=== PATIENT | female | born 1980 | race Caucasian/White ===

== ENCOUNTER 2018-03-03 12:33 | Emergency (ER) | payer OTHER ==
[~2018-03-03] VITALS: Ht 170.2 cm; Wt 71.7 kg
[~2018-03-03 12:33] MED LIST: AMOXICILLIN 50500 MG PO; AUGMENTIN 875875 M1 PO; BENADRYL25 MG; CIPRO500 MG PO; CIPROFLOXACIN250 M2 PO; FLAGYL500 MG; FLEXERIL PO; FLOMAX0.4 MG PO; MACROBID 100 M100 M1 PO; MULTIVITAM9 MG/15 M1; NEXIUM40 MG PO; NORCO 5-325 TA1 EACH PO; PERCOCET PO; PRILOSEC2.5 MG; PYRIDIUM200 MG PO; VICODIN ES 7.51 EACH PO; VICOPROFEN 2001 EACH PO; VITAMINS; ZOFRAN ODT4 MG PO; [UNRECOGNIZED DRUG - REMARK] IM
[2018-03-03] MEDS ORDERED: XANAX 0.25 MG0.25 MG PO (12:52)
[2018-03-03] MEDS ORDERED: HYDROCODONE-AP1 EAC6 PO (14:46)
[2018-03-03] MEDS ORDERED: NAPROSYN500 MG PO (14:46)
[2018-03-03] MEDS ORDERED: ROBAXIN 750 MG750 M1 PO (14:49)
[2018-03-03 15:01] VITALS: BP 112/78
== END 2018-03-03 15:02 | disposition home or self-care (01) ==
LOC: M.ERS 12:33
DX: G89.29 Other chronic pain (principal); M54.2 Cervicalgia; M54.5 Low back pain; M54.6 Pain in thoracic spine; F31.9 Bipolar disorder, unspecified; E03.9 Hypothyroidism, unspecified; F20.9 Schizophrenia, unspecified; J45.909 Unspecified asthma, uncomplicated; F17.210 Nicotine dependence, cigarettes, uncomplicated